=== PATIENT | female | born 1990 ===

== ENCOUNTER 2018-11-12 22:01 | Emergency (ER) | payer OTHER ==
[~2018-11-12] VITALS: Ht 160 cm; Wt 49.9 kg
[2018-11-12 22:11] VITALS: Ht 160 cm; Wt 49.9 kg
[2018-11-12 22:51] VITALS: BP 131/68
[2018-11-12 22:59] LABS: AMPHETAMINE QUAL UR NONE DETECTED (See below)
== END 2018-11-12 22:51 | disposition home or self-care (01) ==
LOC: ED 22:01
PROVIDERS: Specialist
DX: F10.129 Alcohol abuse with intoxication, unspecified (principal)